=== PATIENT | male | born 1945 | race American Indian/Alaskan Native ===

== ENCOUNTER 2019-12-17 11:50 | Emergency (ER) | payer MEDICARE ==
[2019-12-17 12:46] LABS: Mucus,Urine 1+ /HPF
[2019-12-17 12:47] LABS: Basophils % (Auto) 0.7 % (0.0-1.8); Eosinophils # (Auto) 0.2 K/mm3 (0.0-0.4); Eosinophils % (Auto) 4.1 % (0.0-4.3); Hematocrit 41.5 % (35.5-45.6); Hemoglobin 13.8 gm/dl (11.8-15.2); Lymphocytes # (Auto) 1.8 K/mm3 (1.2-5.4); Lymphocytes % (Auto) 39.4 % (13.4-35.0); Mean Corpuscular HGB Conc 33 % (32-34); Mean Corpuscular Volume 87 fl (84-94); Monocytes # (Auto) 0.5 K/mm3 (0.0-0.8); Monocytes % (Auto) 10.8 % (0.0-7.3); Platelet Count 207 K/mm3 (140-440); Red Blood Count 4.78 M/mm3 (3.65-5.03); Red Cell Distribution Width 15.4 % (13.2-15.2)
[2019-12-17 12:47] LABS: Bilirubin,Urine NEG (Negative); Blood,Urine LG (Negative); Color,Urine Yellow (Yellow); Urobilinogen,Urine < 2.0 mg/dL (<2.0)
[2019-12-17] MEDS ORDERED: SODIUM CHLORIDE 0.9% 1000 ML 1,000 ML IV ONE (12:48)
[2019-12-17] MEDS ORDERED: ONDANSETRON 4 MG/2 ML INJ IV ONE (12:48)
[2019-12-17] MEDS ORDERED: MORPHINE 4 MG/1 ML INJ IV ONE (12:48)
[2019-12-17 12:49] LABS: RBC,Urine > 182.0 /HPF (0.0-6.0)
[2019-12-17 13:10] LABS: Alanine Aminotransferase 13 units/L (7-56); Albumin 4.4 g/dL (3.9-5); BUN/Creatinine Ratio 12; Blood Urea Nitrogen 11 mg/dL (9-20); Calcium 10.1 mg/dL (8.4-10.2); Hemolysis Index 5
--- NOTE | 2019-12-17 15:39 | Emergency Department Report ---
ED General Adult HPI - General Chief complaint: Abdominal Pain Stated complaint: SIDE PAIN Time Seen by Provider: 12/17/19 12:37 Source: patient Mode of arrival: Ambulatory Limitations: No Limitations - History of Present Illness Initial comments: Patient is a 74-year-old male presents emergency room with complaints of epigastric abdominal pain that radiates to the back that began yesterday. He states that it feels like a knot. Patient states that he took a Goody's powder without much relief. He states that also yesterday he had hematuria. He states he had a normal bowel movement today. He denies any nausea, vomiting, diarrhea, hematochezia, melena, fever, chest pain, shortness of breath. He has a past medical history of DM, nephrolithiasis, vertigo, hypertension. He states that he has not taken his medications since August 2019. He states that he does have a primary care doctor that he sees but did not call them when he ran out of his medications. Severity scale (0 -10): 3 - Related Data Previous Rx's Medication Instructions Recorded Last Taken Type metFORMIN [Glucophage] 500 mg PO BID #60 tablet 11/20/13 Unknown Rx Meclizine [Antivert] 25 mg PO QID PRN #20 tablet 11/30/14 Unknown Rx oxyCODONE /ACETAMINOPHEN [Percocet 1 tab PO Q6H PRN #10 tablet 11/30/14 Unknown Rx 5/325 mg] Tamsulosin [Flomax] 0.4 mg PO QDAY #7 cap 12/17/19 Unknown Rx amLODIPine 10 mg PO DAILY #30 tab 12/17/19 Unknown Rx traMADoL [Ultram 50 MG tab] 50 mg PO Q6HR PRN #10 tablet 12/17/19 Unknown Rx Allergies Allergy/AdvReac Type Severity Reaction Status Date / Time sulfamethoxazole AdvReac Unknown Verified 12/17/19 12:09 [From Bactrim] trimethoprim [From Bactrim] AdvReac Unknown Verified 12/17/19 12:09 ED Review of Systems ROS: Stated complaint: SIDE PAIN Other details as noted in HPI Comment: All other systems reviewed and negative ED Past Medical Hx - Past Medical History Hx Hypertension: Yes Hx Diabetes: Yes Hx HIV: No Additional medical history: vertigo - Surgical History Past Surgical History?: No - Social History Smoking Status: Never Smoker Substance Use Type: None - Medications Home Medications: Home Medications Medication Instructions Recorded Confirmed Last Taken Type metFORMIN [Glucophage] 500 mg PO BID #60 tablet 11/20/13 11/27/14 Unknown Rx Meclizine [Antivert] 25 mg PO QID PRN #20 tablet 11/30/14 Unknown Rx oxyCODONE /ACETAMINOPHEN [Percocet 1 tab PO Q6H PRN #10 tablet 11/30/14 Unknown Rx 5/325 mg] Tamsulosin [Flomax] 0.4 mg PO QDAY #7 cap 12/17/19 Unknown Rx amLODIPine 10 mg PO DAILY #30 tab 12/17/19 Unknown Rx traMADoL [Ultram 50 MG tab] 50 mg PO Q6HR PRN #10 tablet 12/17/19 Unknown Rx ED Physical Exam - General Limitations: No Limitations General appearance: alert, in no apparent distress - Head Head exam: Present: atraumatic, normocephalic - Eye Eye exam: Present: normal appearance - ENT ENT exam: Present: mucous membranes moist - Respiratory Respiratory exam: Present: normal lung sounds bilaterally. Absent: respiratory distress, wheezes, rales, rhonchi, stridor, chest wall tenderness, accessory muscle use, decreased breath sounds, prolonged expiratory - Cardiovascular Cardiovascular Exam: Present: regular rate, normal rhythm, normal heart sounds. Absent: systolic murmur, diastolic murmur, rubs, gallop - GI/Abdominal GI/Abdominal exam: Present: soft, tenderness (epigastric), normal bowel sounds. Absent: distended, guarding, rebound, rigid - Neurological Exam Neurological exam: Present: alert, oriented X3 - Psychiatric Psychiatric exam: Present: normal affect, normal mood - Skin Skin exam: Present: warm, dry, intact ED Course Vital Signs 12/17/19 12/17/19 12/17/19 12:11 13:11 13:15 Temperature 98.0 F Pulse Rate 76 69 78 Respiratory 20 16 15 Rate Blood Pressure 213/100 191/97 O2 Sat by Pulse 98 93 Oximetry 12/17/19 12/17/19 12/17/19 13:16 13:30 13:46 Temperature Pulse Rate 73 Respiratory 15 16 15 Rate Blood Pressure 181/89 O2 Sat by Pulse Oximetry 12/17/19 12/17/19 12/17/19 14:02 14:30 15:00 Temperature Pulse Rate 75 74 Respiratory 15 15 Rate Blood Pressure 172/87 169/87 180/90 O2 Sat by Pulse Oximetry 12/17/19 12/17/19 15:30 15:52 Temperature Pulse Rate 94 H Respiratory 19 Rate Blood Pressure 163/88 O2 Sat by Pulse 95 Oximetry ED Medical Decision Making - Lab Data Result diagrams: 12/17/19 12:24 12/17/19 12:24 Lab Results 12/17/19 12/17/19 12/17/19 Range/Units 12:19 12:24 12:24 WBC 4.6 (4.5-11.0) K/mm3 RBC 4.78 (3.65-5.03) M/mm3 Hgb 13.8 (11.8-15.2) gm/dl Hct 41.5 (35.5-45.6) % MCV 87 (84-94) fl MCH 29 (28-32) pg MCHC 33 (32-34) % RDW 15.4 H (13.2-15.2) % Plt Count 207 (140-440) K/mm3 Lymph % (Auto) 39.4 H (13.4-35.0) % [place] % (Auto) 10.8 H (0.0-7.3) % Eos % (Auto) 4.1 (0.0-4.3) % Baso % (Auto) 0.7 (0.0-1.8) % Lymph # 1.8 (1.2-5.4) K/mm3 [place] # 0.5 (0.0-0.8) K/mm3 Eos # 0.2 (0.0-0.4) K/mm3 Baso # 0.0 (0.0-0.1) K/mm3 Seg Neutrophils % 45.0 (40.0-70.0) % Seg Neutrophils # 2.1 (1.8-7.7) K/mm3 Sodium 142 (137-145) mmol/L Potassium 4.7 (3.6-5.0) mmol/L Chloride 102.8 (98-107) mmol/L Carbon Dioxide 29 (22-30) mmol/L Anion Gap 15 mmol/L BUN 11 (9-20) mg/dL Creatinine 0.9 (0.8-1.5) mg/dL Estimated GFR > 60 ml/min BUN/Creatinine Ratio 12 % Glucose 104 H (75-100) mg/dL Calcium 10.1 (8.4-10.2) mg/dL Total Bilirubin 0.20 (0.1-1.2) mg/dL AST 15 (5-40) units/L ALT 13 (7-56) units/L Alkaline Phosphatase 104 (35-129) units/L Troponin T (0.00-0.029) ng/mL Total Protein 7.4 (6.3-8.2) g/dL Albumin 4.4 (3.9-5) g/dL Albumin/Globulin Ratio 1.5 % Lipase (13-60) units/L Urine Color Yellow (Yellow) Urine Turbidity Slightly-cloudy (Clear) Urine pH 5.0 (5.0-7.0) Ur Specific [place] 1.021 (1.003-1.030) Urine Protein 30 mg/dl (Negative) mg/dL Urine Glucose (UA) Neg (Negative) mg/dL Urine Ketones Neg (Negative) mg/dL Urine Blood Lg (Negative) Urine Nitrite Neg (Negative) Urine Bilirubin Neg (Negative) Urine Ictotest Not Reportable Urine Urobilinogen < 2.0 (<2.0) mg/dL Ur Leukocyte Esterase Neg (Negative) Urine WBC (Auto) 4.0 (0.0-6.0) /HPF Urine RBC (Auto) > 182.0 (0.0-6.0) /HPF U Epithel Cells (Auto) 1.0 (0-13.0) /HPF Urine Mucus 1+ /HPF Urine Yeast (Budding) Not Reportable 12/17/19 Range/Units 12:24 WBC (4.5-11.0) K/mm3 RBC (3.65-5.03) M/mm3 Hgb (11.8-15.2) gm/dl Hct (35.5-45.6) % MCV (84-94) fl MCH (28-32) pg MCHC (32-34) % RDW (13.2-15.2) % Plt Count (140-440) K/mm3 Lymph % (Auto) (13.4-35.0) % [place] % (Auto) (0.0-7.3) % Eos % (Auto) (0.0-4.3) % Baso % (Auto) (0.0-1.8) % Lymph # (1.2-5.4) K/mm3 [place] # (0.0-0.8) K/mm3 Eos # (0.0-0.4) K/mm3 Baso # (0.0-0.1) K/mm3 Seg Neutrophils % (40.0-70.0) % Seg Neutrophils # (1.8-7.7) K/mm3 Sodium (137-145) mmol/L Potassium (3.6-5.0) mmol/L Chloride (98-107) mmol/L Carbon Dioxide (22-30) mmol/L Anion Gap mmol/L BUN (9-20) mg/dL Creatinine (0.8-1.5) mg/dL Estimated GFR ml/min BUN/Creatinine Ratio % Glucose (75-100) mg/dL Calcium (8.4-10.2) mg/dL Total Bilirubin (0.1-1.2) mg/dL AST (5-40) units/L ALT (7-56) units/L Alkaline Phosphatase (35-129) units/L Troponin T < 0.010 (0.00-0.029) ng/mL Total Protein (6.3-8.2) g/dL Albumin (3.9-5) g/dL Albumin/Globulin Ratio % Lipase 25 (13-60) units/L Urine Color (Yellow) Urine Turbidity (Clear) Urine pH (5.0-7.0) Ur Specific [place] (1.003-1.030) Urine Protein (Negative) mg/dL Urine Glucose (UA) (Negative) mg/dL Urine Ketones (Negative) mg/dL Urine Blood (Negative) Urine Nitrite (Negative) Urine Bilirubin (Negative) Urine Ictotest Urine Urobilinogen (<2.0) mg/dL Ur Leukocyte Esterase (Negative) Urine WBC (Auto) (0.0-6.0) /HPF Urine RBC (Auto) (0.0-6.0) /HPF U Epithel Cells (Auto) (0-13.0) /HPF Urine Mucus /HPF Urine Yeast (Budding) - Radiology Data Radiology results: report reviewed CT angio chest, CT angio abdomen pelvis INDICATION / CLINICAL INFORMATION: epigastric pain radiates to back, elevated BP. TECHNIQUE: Axial CT images were obtained after injection of IV contrast using CTA protocol. 3 plane MIP / 3D reconstructions were produced. All CT scans at this location are performed using CT dose reduction for ALARA by means of automated exposure control. COMPARISON: None available. CTA chest: Negative for aneurysm, dissection or pulmonary embolus. The lungs contain no mass, infiltrate or pleural fluid. Lingular scarring is noted. CTA ABDOMEN: The aorta is normal in caliber. The renal arteries and mesenteric vessels are widely patent. Negative for aneurysm or dissection. The parenchymal organs are unremarkable other than a 1 cm nonobstructing stone at the lower pole the right kidney and a 2 mm nonobstructing stone at the upper pole of the left kidney. Negative for abdominal mass, fluid or inflammation. The bowel is not dilated or thickened. CTA PELVIS: Iliac vessels are mildly tortuous. Negative for aneurysm, dissection or stenosis. The appendix is normal. IMPRESSION: 1. Negative for aneurysm, dissection or pulmonary embolus. 2. Nonobstructing renal stones right greater than left. Signer Name: Tyler Mueller MD Signed: 12/17/2019 3:04 PM Workstation Name: [id number] Transcribed By: ES Dictated By: Tyler Mueller MD Electronically Authenticated By: Tyler Mueller MD Signed Date/Time: 12/17/19 1504 DD/ 1457 TD/TT: - Medical Decision Making Patient is a 74-year-old male presents emergency room with complaints of epigastric abdominal pain that radiates to the back that began yesterday. He states that it feels like a knot. Patient states that he took a Goody's powder without much relief. He states that also yesterday he had hematuria. He states he had a normal bowel movement today. He denies any nausea, vomiting, diarrhea, hematochezia, melena, fever, chest pain, shortness of breath. He has a past medical history of DM, nephrolithiasis, vertigo, hypertension. He states that he has not taken his medications since August 2019. He states that he does have a primary care doctor that he sees but did not call them when he ran out of his medications. Initial vitals with elevated blood pressure which improved upon administration of 5 mg of labetalol IV. On exam patient has epigastric abdominal tenderness to palpation, no guarding, no rebound, no rigidity. Labs are normal. UA has many red blood cells. CTA abd and chest: 1. Negative for aneurysm, dissection or pulmonary embolus. 2. Nonobstructing renal stones right greater than left. Patient given morphine, Zofran, 1 L IV fluids and symptoms resolved and he was feeling much better. Discussed all results with patient and answered questions. Patient states that he takes amlodipine for hypertension, he states that he does take 1 other medication for his blood pressure but does not remember what it is. Patient given prescription for amlodipine, tamsulosin, tramadol. Advised patient Please take medication as prescribed. do not drive or operate heavy machinery while taking pain medication. Increase your water intake. Please follow-up with the urologist. Please follow-up with a primary care doctor. Return to the emergency room for any new or worsening symptoms. Please take your blood pressure medication as prescribed. Keep a blood pressure log and take this to your primary care doctor. Eat a low-sodium diet. Incorporate 30 minutes of daily exercise. - Differential Diagnosis AAA, dissection, pancreatitis, cholecystitis, nephrolithiasis, mass, obstru Critical care attestation.: If time is entered above; I have spent that time in minutes in the direct care of this critically ill patient, excluding procedure time. ED Disposition Clinical Impression: Nephrolithiasis, Hypertensive urgency Hematuria Qualifiers: Hematuria type: unspecified type Qualified Code(s): R31.9 - Hematuria, unspecified Abdominal pain Qualifiers: Abdominal location: epigastric Qualified Code(s): R10.13 - Epigastric pain Disposition: DC-01 TO HOME OR SELFCARE Is pt being admited?: No Does the pt Need Aspirin: No Condition: Stable Instructions: Kidney Stones (ED), Chronic Hypertension (ED) Additional Instructions: Please take medication as prescribed. do not drive or operate heavy machinery while taking pain medication. Increase your water intake. Please follow-up with the urologist. Please follow-up with a primary care doctor. Return to the emergency room for any new or worsening symptoms. Please take your blood pressure medication as prescribed. Keep a blood pressure log and take this to your primary care doctor. Eat a low-sodium diet. Incorporate 30 minutes of daily exercise. Prescriptions: amLODIPine 10 mg PO DAILY #30 tab Tamsulosin [Flomax] 0.4 mg PO QDAY #7 cap traMADoL [Ultram 50 MG tab] 50 mg PO Q6HR PRN #10 tablet PRN Reason: Pain , Severe (7-10) Referrals: GERARD CRESPO MD [Staff Physician] - 3-5 Days your, primary care doctor [Other] - 3-5 Days Time of Disposition: 15:38 Print Language: SYRIAC
[2019-12-17 15:58] VITALS: BP 163/88
== END 2019-12-17 16:11 | disposition home or self-care (01) ==
LOC: ED 11:50
DX: N20.0 Calculus of kidney (principal); I16.0 Hypertensive urgency; R10.13 Epigastric pain; R31.9 Hematuria, unspecified; R42 Dizziness and giddiness; E11.9 Type 2 diabetes mellitus without complications; Z79.84 Long term (current) use of oral hypoglycemic drugs; Z79.899 Other long term (current) drug therapy; Z88.8 Allergy status to other drugs, medicaments and biological substances
CPT/HCPCS: 36415; 71275; 74174; 80053; 81001; 83690; 84484; 85025; 96361; 96374; 96375; 99284; J2270; J2405; J7030; Q9967

== ENCOUNTER 2022-04-10 12:51 | Inpatient (IN) | payer MEDICARE ==
[2022-04-10] MEDS ORDERED: ASPIRIN 325 MG TAB PO ONE (12:57)
--- NOTE | 2022-04-10 13:47 | XRay Report ---
CHEST 2 VIEWS INDICATION / CLINICAL INFORMATION: cp. COMPARISON: None available. FINDINGS: SUPPORT DEVICES: None. HEART / MEDIASTINUM: No significant abnormality. LUNGS / PLEURA: No significant pulmonary or pleural abnormality. No pneumothorax. ADDITIONAL FINDINGS: No significant additional findings. IMPRESSION: 1. No acute findings. Signer Name: Craig Genao MD Signed: 04/10/2022 1:43 PM Workstation Name: [email or web address]
[2022-04-10 14:21] LABS: Basophils # (Auto) 0.1 K/mm3 (0.0-0.1); Eosinophils # (Auto) 0.3 K/mm3 (0.0-0.4); Eosinophils % (Auto) 5.3 % (0.0-4.3); Hemoglobin 12.9 gm/dl (11.8-15.2); Lymphocytes # (Auto) 1.1 K/mm3 (1.2-5.4); Lymphocytes % (Auto) 23.5 % (13.4-35.0); Mean Corpuscular HGB Conc 32 % (32-34); Mean Corpuscular Volume 87 fl (84-94); Monocytes # (Auto) 0.4 K/mm3 (0.0-0.8); Monocytes % (Auto) 7.8 % (0.0-7.3); Platelet Count 203 K/mm3 (140-440); Red Blood Count 4.58 M/mm3 (3.65-5.03); Red Cell Distribution Width 15.7 % (13.2-15.2)
[2022-04-10 14:27] LABS: INR 0.93 (0.87-1.13)
[2022-04-10 14:28] LABS: Partial Thromboplastin Time 31.7 Sec. (24.2-36.6)
[2022-04-10 14:45] LABS: Alanine Aminotransferase 9 units/L (7-56); Albumin 4.1 g/dL (3.9-5); BUN/Creatinine Ratio 14; Blood Urea Nitrogen 15 mg/dL (9-20); Calcium 9.3 mg/dL (8.4-10.2); Hemolysis Index 0
[2022-04-10 17:33] LABS: Chol/HDL Ratio 3.59 %; HDL Cholesterol 42 mg/dL (40-59); LDL Cholesterol,Direct 98 mg/dL (50-130)
[2022-04-11] MEDS ORDERED: NITROGLYCERIN 2% OINT 1 GM TP ONE (11:14)
[2022-04-11] MEDS ORDERED: cloNIDine 0.2 MG TAB PO ONE (11:26)
[2022-04-11] MEDS ORDERED: fentaNYL 100 MCG/2 ML INJ IV ONE (11:27)
[2022-04-11] MEDS ORDERED: ONDANSETRON 4 MG/2 ML INJ IV ONE (11:27)
--- NOTE | 2022-04-11 11:33 | Emergency Department Report ---
HPI - General Chief Complaint: Chest Pain Time Seen by Provider: 04/11/22 11:12 - [facility] HPI: Room 3 The patient is a 76-year-old male present with chief complaint of chest pain. Patient states for the past month he has had intermittent chest pain and sh ortness of breath with exertion. Patient states his pain is substernal. Patient states he has been awakened from his sleep secondary to shortness of breath and chest pain prompting him to come to the emergency department. Patient denies nausea/vomiting or diaphoresis with this pain. Patient states he has never had a stress test or cardiac catheterization ED Past Medical Hx - Past Medical History Hx Hypertension: Yes Hx Diabetes: Yes Additional medical history: vertigo, hypercholesterolemia - Surgical History Additional Surgical History: Kidney stone - Family History Family history: no significant - Social History Smoking Status: Never Smoker Substance Use Type: None (Denies illicit drug use) - Medications Home Medications: Home Medications Medication Instructions Recorded Confirmed Last Taken Type metFORMIN [Glucophage] 500 mg PO BID #60 tablet 11/20/13 11/27/14 Unknown Rx Meclizine [Antivert] 25 mg PO QID PRN #20 tablet 11/30/14 Unknown Rx oxyCODONE /ACETAMINOPHEN [Percocet 1 tab PO Q6H PRN #10 tablet 11/30/14 Unknown Rx 5/325 mg] Tamsulosin [Flomax] 0.4 mg PO QDAY #7 cap 12/17/19 Unknown Rx amLODIPine 10 mg PO DAILY #30 tab 12/17/19 Unknown Rx traMADoL [Ultram 50 MG tab] 50 mg PO Q6HR PRN #10 tablet 12/17/19 Unknown Rx ED Review of Systems ROS: Stated complaint: CP, SOB Other details as noted in HPI Constitutional: denies: diaphoresis, fever Eyes: denies: eye pain ENT: denies: throat pain Respiratory: shortness of breath, SOB with exertion Cardiovascular: chest pain, dyspnea on exertion, paroxysmal nocturnal dyspnea Endocrine: no symptoms reported Gastrointestinal: denies: nausea, vomiting Genitourinary: denies: dysuria Musculoskeletal: denies: back pain Neurological: denies: headache Physical Exam - Physical Exam Vital Signs: Vital Signs 04/10/22 04/11/22 12:56 07:08 Temperature 98.3 F 98.2 F Pulse Rate 89 72 Respiratory 18 16 Rate Blood Pressure 153/100 172/92 [Left] O2 Sat by Pulse 100 99 Oximetry Physical Exam: GENERAL: The patient is well-developed well-nourished male lying on stretcher not appearing to be in acute distress. [] HEENT: Normocephalic. Atraumatic. Extraocular motions are intact. Patient has moist mucous membranes. NECK: Supple. Trachea midline CHEST/LUNGS: Clear to auscultation. There is no respiratory distress noted. HEART/CARDIOVASCULAR: Regular. There is no tachycardia. There is no gallop rub or murmur. ABDOMEN: Abdomen is soft, nontender. Patient has normal bowel sounds. There is no abdominal distention. SKIN: There is no rash. There is no edema. There is no diaphoresis. NEURO: The patient is awake, alert, and oriented. The patient is cooperative. The patient has no focal neurologic deficits. The patient has normal speech. GCS 15 MUSCULOSKELETAL: There is no evidence of acute injury. ED Course Vital Signs 04/10/22 04/11/22 12:56 07:08 Temperature 98.3 F 98.2 F Pulse Rate 89 72 Respiratory 18 16 Rate Blood Pressure 153/100 172/92 [Left] O2 Sat by Pulse 100 99 Oximetry - Consultations Consultation #1: 04/11/22 11:36 Case discussed with cardiology (Kranthi) ED Medical Decision Making - Lab Data Result diagrams: 04/10/22 13:29 04/10/22 13:29 - EKG Data -: EKG Interpreted by Me EKG shows normal: sinus rhythm Rate: normal - EKG Data When compared to previous EKG there are: no significant change Interpretation: unchanged when compared t (11/20/2013) - Radiology Data Radiology results: report reviewed (Chest x-ray, CT chest), image reviewed (Chest x-ray, CT chest) interpreted by me: Chest x-ray-no definite focal infiltrates, no pneumothorax [facility] [address] [place] [address] XRay Report Signed Patient: FLORA DIAZ JR MR#: [id number] : 1945 Acct:[id number] Age/Sex: 76 / M ADM Date: 04/10/22 Loc: ED Attending Dr: Ordering Physician: ED MD GIRMA Date of Service: 04/10/22 Procedure(s): XR chest routine 2V Accession Number(s): [id number] cc: ED MD GIRMA Fluoro Time In Minutes: CHEST 2 VIEWS INDICATION / CLINICAL INFORMATION: cp. COMPARISON: None available. FINDINGS: SUPPORT DEVICES: None. HEART / MEDIASTINUM: No significant abnormality. LUNGS / PLEURA: No significant pulmonary or pleural abnormality. No pneumothorax. ADDITIONAL FINDINGS: No significant additional findings. IMPRESSION: 1. No acute findings. Signer Name: Craig Genao MD Signed: 04/10/2022 1:43 PM Workstation Name: [email or web address] Transcribed By: CW Dictated By: PAUL GENAO MD Electronically Authenticated By: PAUL GENAO MD Signed Date/Time: 04/10/221342 DD/ 42 TD/TT: [place] [address] Cat Scan Report Signed Patient: FLORA DIAZ JR MR#: [id number] : 1945 Acct:[id number] Age/Sex: 76 / M ADM Date: 04/10/22 Loc: ED Attending Dr: Ordering Physician: YUKO JON MD Date of Service: 04/11/22 Procedure(s): CT angio chest Accession Number(s): [id number] cc: YUKO JON MD CTA CHEST WITH CONTRAST INDICATION / CLINICAL INFORMATION: Chest pain 100ml of [id number] . TECHNIQUE: Axial CT images were obtained through the chest after injection of 100 mL IV contrast. 3 plane MIP and/or 3D reconstructions were produced. All CT scans at this location are performed using CT dose reduction for ALARA by means of automated exposure control. COMPARISON: CTA chest dated 12/17/2019 FINDINGS: PULMONARY EMBOLUS: None. Respiratory motion limits evaluation of the subsegmental pulmonary arteries. THORACIC AORTA: No significant abnormality. HEART: Cardiomegaly. CORONARY ARTERY CALCIFICATION: Present -- Mild. MEDIASTINUM / ZOILA: No significant abnormality. PLEURA: No pleural effusion. No pneumothorax. LUNGS: Dependent consolidation right lung base. Smooth interlobular septal thickening. Lingular scarring versus atelectasis. Dependent right lower lobe scarring versus atelectasis. ADDITIONAL FINDINGS: None. UPPER ABDOMEN: Reflux of contrast into the IVC and hepatic veins. Bilateral nonobstructing renal calculi. SKELETAL STRUCTURES: No significant osseous abnormality. IMPRESSION: 1. No CT evidence for pulmonary embolism. 2. Mild pulmonary edema. 2. Dependent consolidation in the right lower lobe, likely a combination of pneumonia and atelectasis. Signer Name: Elian Yee MD Signed: 04/11/2022 4:45 PM Workstation Name: [id number] Transcribed By: SAL Dictated By: ELIAN YEE MD Electronically Authenticated By: ELIAN YEE MD Signed Date/Time: 04/11/221644 DD/ 38 TD/TT: - Differential Diagnosis ACS, angina, PE, pleurisy, pericarditis, GERD Critical care attestation.: If time is entered above; I have spent that time in minutes in the direct care of this critically ill patient, excluding procedure time. ED Disposition Clinical Impression: Chest pain, CHF (congestive heart failure) Disposition: ADMITTED INPATIENT Is pt being admited?: Yes Does the pt Need Aspirin: Yes Condition: Fair Instructions: Nonspecific Chest Pain, Adult Referrals: PRIMARY CARE, [Primary Care Provider] - 3-5 Days Time of Disposition: 17:05 (Care transferred to hospitalist (Dr. Mar)) Heart Score - HEART Score History: Moderately suspicious EKG: Non-specific Age: > 65 Risk factors: > 3 risk factors or hx of atherosclerotic disease Troponin: 1-3x normal limit HEART Score: 7 - EKG Read Time Time EKG Completed: 11:32 EKG Read Time: 11:32
--- NOTE | 2022-04-11 12:37 | Consultation ---
History of Present Illness Consult date: 04/11/22 Requesting physician: YUKO JON Consult reason: chest pain, elevated troponin History of present illness: Patient is a 76-year-old male with a past medical history of hypertension, diabetes, hyperlipidemia who presented to the ED with a complaint of intermittent chest pain and shortness of breath x1 month. Patient reports that since the beginning of February he has had this intermittent sharp chest pain that occurs when he takes a deep breath. He also states he has been having a cough and some shortness of breath. Patient furthermore patient reports that certain nights he wakes up short of breath. Patient came to the ED for further evaluation due to his ongoing complaints. Of note patient reports that he does have a history of high blood pressure but does not take any medications for it. He states he just did not want to. In the ED patient was found to have minimally elevated troponins. Patient denies crushing or squeezing chest pain, chest pain worsened by exertion, diaphoresis, nausea, vomiting, palpitations, or lightheadedness. Per review of records patient previously saw Dr. Glez of our practice in 2018 but has not followed up since then. Cardiology is consulted for chest pain/elevated troponins. Past History Past Medical History: diabetes, hypertension, hyperlipidemia, other (h/o kidney stones) Past Surgical History: No surgical history Social history: denies: smoking Family history: CAD, hypertension Medications and Allergies Allergies Allergy/AdvReac Type Severity Reaction Status Date / Time sulfamethoxazole AdvReac Unknown Verified 04/10/22 12:57 [From Bactrim] trimethoprim [From Bactrim] AdvReac Unknown Verified 04/10/22 12:57 Home Medications Medication Instructions Recorded Confirmed Last Taken Type metFORMIN [Glucophage] 500 mg PO BID #60 tablet 11/20/13 11/27/14 Unknown Rx Meclizine [Antivert] 25 mg PO QID PRN #20 tablet 11/30/14 Unknown Rx oxyCODONE /ACETAMINOPHEN [Percocet 1 tab PO Q6H PRN #10 tablet 11/30/14 Unknown Rx 5/325 mg] Tamsulosin [Flomax] 0.4 mg PO QDAY #7 cap 12/17/19 Unknown Rx amLODIPine 10 mg PO DAILY #30 tab 12/17/19 Unknown Rx traMADoL [Ultram 50 MG tab] 50 mg PO Q6HR PRN #10 tablet 12/17/19 Unknown Rx Active Meds: Active Medications Aspirin (Aspirin 81 Mg Tab Chew) 81 mg PO DAILY [facility] Atorvastatin Calcium (Atorvastatin 20 Mg Tab) 20 mg PO QHS [facility] Lisinopril (Lisinopril 20 Mg Tab) 40 mg PO DAILY [facility] Metoprolol Tartrate (Metoprolol Tartrate 50 Mg Tab) 50 mg PO BID [facility] Review of Systems Constitutional: no weight loss, no weight gain Ears, nose, mouth and throat: no sinus pressure, no sinus pain Cardiovascular: chest pain, shortness of breath, paroxysmal nocturnal dyspnea, no orthopnea, no palpitations, no edema Respiratory: cough, shortness of breath, dyspnea on exertion, pain on inspiration Gastrointestinal: no abdominal pain, no nausea, no vomiting Musculoskeletal: no neck stiffness, no neck pain, no shooting arm pain Integumentary: no rash, no pruritis, no redness Neurological: no head injury, no transient paralysis, no paralysis Psychiatric: no anxiety, no memory loss Endocrine: no cold intolerance, no heat intolerance Hematologic/Lymphatic: no easy bruising, no easy bleeding Physical Examination Vital Signs Temp Pulse Resp BP Pulse Ox 98.3 F 89 18 153/100 100 04/10/22 12:56 04/10/22 12:56 04/10/22 12:56 04/10/22 12:56 04/10/22 12:56 General appearance: no acute distress HEENT: Positive: PERRL Neck: Positive: trachea midline Cardiac: Positive: Reg Rate and Rhythm Lungs: Positive: Normal Breath Sounds Neuro: Positive: Grossly Intact Abdomen: Positive: Soft Skin: Negative: Rash, Suspicious Lesions, Ulceration Extremities: Present: upper extr. pulses. Absent: edema Results 04/10/22 13:29 04/10/22 13:29 Cardiac Enzymes 04/10/22 04/10/22 04/10/22 Range/Units 13:29 13:29 13:29 WBC 4.8 (4.5-11.0) K/mm3 RBC 4.58 (3.65-5.03) M/mm3 Hgb 12.9 (11.8-15.2) gm/dl Hct 40.0 (35.5-45.6) % MCV 87 (84-94) fl MCH 28 (28-32) pg MCHC 32 (32-34) % RDW 15.7 H (13.2-15.2) % Plt Count 203 (140-440) K/mm3 Lymph % (Auto) 23.5 (13.4-35.0) % [place] % (Auto) 7.8 H (0.0-7.3) % Eos % (Auto) 5.3 H (0.0-4.3) % Baso % (Auto) 1.0 (0.0-1.8) % Lymph # (Auto) 1.1 L (1.2-5.4) K/mm3 [place] # (Auto) 0.4 (0.0-0.8) K/mm3 Eos # (Auto) 0.3 (0.0-0.4) K/mm3 Baso # (Auto) 0.1 (0.0-0.1) K/mm3 Seg Neutrophils % 62.4 (40.0-70.0) % Seg Neutrophils # 3.0 (1.8-7.7) K/mm3 PT 13.7 (12.2-14.9) Sec. INR 0.93 (0.87-1.13) APTT 31.7 (24.2-36.6) Sec. Sodium 141 (137-145) mmol/L Potassium 4.1 (3.6-5.0) mmol/L Chloride 105.0 (98-107) mmol/L Carbon Dioxide 24 (22-30) mmol/L Anion Gap 16 mmol/L BUN 15 (9-20) mg/dL Creatinine 1.1 (0.8-1.3) mg/dL Estimated GFR > 60 ml/min BUN/Creatinine Ratio 14 % Glucose 201 H (75-100) mg/dL Calcium 9.3 (8.4-10.2) mg/dL Total Bilirubin 0.80 (0.1-1.2) mg/dL AST 12 (5-40) units/L ALT 9 (7-56) units/L Alkaline Phosphatase 111 (35-129) units/L Troponin T 0.054 H (0.00-0.029) ng/mL Total Protein 7.4 (6.3-8.2) g/dL Albumin 4.1 (3.9-5) g/dL Albumin/Globulin Ratio 1.2 % Triglycerides 53 (2-149) mg/dL Cholesterol 151 (50-199) mg/dL LDL Cholesterol Direct 98 (50-130) mg/dL HDL Cholesterol 42 (40-59) mg/dL Cholesterol/HDL Ratio 3.59 % 04/10/22 04/10/22 Range/Units 16:01 19:57 WBC (4.5-11.0) K/mm3 RBC (3.65-5.03) M/mm3 Hgb (11.8-15.2) gm/dl Hct (35.5-45.6) % MCV (84-94) fl MCH (28-32) pg MCHC (32-34) % RDW (13.2-15.2) % Plt Count (140-440) K/mm3 Lymph % (Auto) (13.4-35.0) % [place] % (Auto) (0.0-7.3) % Eos % (Auto) (0.0-4.3) % Baso % (Auto) (0.0-1.8) % Lymph # (Auto) (1.2-5.4) K/mm3 [place] # (Auto) (0.0-0.8) K/mm3 Eos # (Auto) (0.0-0.4) K/mm3 Baso # (Auto) (0.0-0.1) K/mm3 Seg Neutrophils % (40.0-70.0) % Seg Neutrophils # (1.8-7.7) K/mm3 PT (12.2-14.9) Sec. INR (0.87-1.13) APTT (24.2-36.6) Sec. Sodium (137-145) mmol/L Potassium (3.6-5.0) mmol/L Chloride (98-107) mmol/L Carbon Dioxide (22-30) mmol/L Anion Gap mmol/L BUN (9-20) mg/dL Creatinine (0.8-1.3) mg/dL Estimated GFR ml/min BUN/Creatinine Ratio % Glucose (75-100) mg/dL Calcium (8.4-10.2) mg/dL Total Bilirubin (0.1-1.2) mg/dL AST (5-40) units/L ALT (7-56) units/L Alkaline Phosphatase (35-129) units/L Troponin T 0.050 H 0.061 H D (0.00-0.029) ng/mL Total Protein (6.3-8.2) g/dL Albumin (3.9-5) g/dL Albumin/Globulin Ratio % Triglycerides (2-149) mg/dL Cholesterol (50-199) mg/dL LDL Cholesterol Direct (50-130) mg/dL HDL Cholesterol (40-59) mg/dL Cholesterol/HDL Ratio % Coagulation 04/10/22 Range/Units 13:29 PT 13.7 (12.2-14.9) Sec. INR 0.93 (0.87-1.13) APTT 31.7 (24.2-36.6) Sec. Lipids 04/10/22 Range/Units 13:29 Triglycerides 53 (2-149) mg/dL Cholesterol 151 (50-199) mg/dL HDL Cholesterol 42 (40-59) mg/dL Cholesterol/HDL Ratio 3.59 % CBC 04/10/22 Range/Units 13:29 WBC 4.8 (4.5-11.0) K/mm3 RBC 4.58 (3.65-5.03) M/mm3 Hgb 12.9 (11.8-15.2) gm/dl Hct 40.0 (35.5-45.6) % Plt Count 203 (140-440) K/mm3 Lymph # (Auto) 1.1 L (1.2-5.4) K/mm3 [place] # (Auto) 0.4 (0.0-0.8) K/mm3 Eos # (Auto) 0.3 (0.0-0.4) K/mm3 Baso # (Auto) 0.1 (0.0-0.1) K/mm3 Comprehensive Metabolic Panel 04/10/22 Range/Units 13:29 Sodium 141 (137-145) mmol/L Potassium 4.1 (3.6-5.0) mmol/L Chloride 105.0 (98-107) mmol/L Carbon Dioxide 24 (22-30) mmol/L BUN 15 (9-20) mg/dL Creatinine 1.1 (0.8-1.3) mg/dL Glucose 201 H (75-100) mg/dL Calcium 9.3 (8.4-10.2) mg/dL AST 12 (5-40) units/L ALT 9 (7-56) units/L Alkaline Phosphatase 111 (35-129) units/L Total Protein 7.4 (6.3-8.2) g/dL Albumin 4.1 (3.9-5) g/dL - Imaging and Cardiology Echo: pending EKG: report reviewed, image reviewed EKG interpretations - Telemetry EKG Rhythm: Sinus Rhythm - EKG Sinus rhythms and dysrhythmias: sinus rhythm Repolarization changes or abnormalities: ST or T wave suggestive of ischemia Assessment and Plan Patient is a 76-year-old male with a past medical history of hypertension, diabetes, hyperlipidemia who presented to the ED with a complaint of intermittent chest pain and shortness of breath x1 month Chest pain Elevated troponins Hypertension Diabetes Hyperlipidemia Obesity Medical noncompliance Echo 08/01/2018-EF 45 to 50% basal posterior wall appears moderately hypokinetic. Inferior wall appears mildly hypokinetic. LV relaxation is impaired. Right ventricle systolic function is normal Plan: EKG shows sinus rhythm with LVH and T wave inversion in lateral leads. No acute ischemic changes. Troponin noted to be very minimally elevated. Continue to trend troponins Patient's chest pain is atypical it is intermittent and no associated with inspiration and coughing As per conversation with ED doctor patient for CT chest Patient noted to be hypertensive will initiate metoprolol 50 mg p.o. twice daily, lisinopril 40 mg p.o. daily, aspirin Will initiate patient's home dose of atorvastatin 20 mg p.o. nightly BNP pending however CXR did not show any acute cardiopulmonary process and patient appears euvolemic on exam We will tentatively plan for stress test in the a.m. pending further work-up. Patient to be n.p.o. after midnight Echo pending Plan of care discussed with patient who verbalized understanding and agreement Patient seen in conjunction with Dr. Bain who agrees this plan of care - Patient Problems (1) Diabetes Current Visit: Yes Status: Acute (2) Elevated troponin Current Visit: Yes Status: Acute (3) HTN (hypertension) Current Visit: Yes Status: Acute (4) Obesity Current Visit: Yes Status: Acute (5) SOB (shortness of breath) Current Visit: Yes Status: Acute (6) Noncompliance Current Visit: Yes Status: Acute (7) Chest pain Current Visit: Yes Status: Acute
[2022-04-11] MEDS: METOPROLOL TARTRATE 50 MG TAB PO SCH ×2 (13:21→22:12)
[2022-04-11] MEDS: LISINOPRIL 20 MG TAB PO SCH (13:21)
--- NOTE | 2022-04-11 16:49 | Cat Scan Report ---
CTA CHEST WITH CONTRAST INDICATION / CLINICAL INFORMATION: Chest pain 100ml of [id number] . TECHNIQUE: Axial CT images were obtained through the chest after injection of 100 mL IV contrast. 3 p jt MIP and/or 3D reconstructions were produced. All CT scans at this location are performed using C T dose reduction for ALARA by means of automated exposure control. COMPARISON: CTA chest dated 12/17/2019 FINDINGS: PULMONARY EMBOLUS: None. Respiratory motion limits evaluation of the subsegmental pulmonary arteries. THORACIC AORTA: No significant abnormality. HEART: Cardiomegaly. CORONARY ARTERY CALCIFICATION: Present -- Mild. MEDIASTINUM / ZOILA: No significant abnormality. PLEURA: No pleural effusion. No pneumothorax. LUNGS: Dependent consolidation right lung base. Smooth interlobular septal thickening. Lingular scarr ing versus atelectasis. Dependent right lower lobe scarring versus atelectasis. ADDITIONAL FINDINGS: None. UPPER ABDOMEN: Reflux of contrast into the IVC and hepatic veins. Bilateral nonobstructing renal calc jess. SKELETAL STRUCTURES: No significant osseous abnormality. IMPRESSION: 1. No CT evidence for pulmonary embolism. 2. Mild pulmonary edema. 2. Dependent consolidation in the right lower lobe, likely a combination of pneumonia and atelectasis . Signer Name: Rj Justin MD Signed: 04/11/2022 4:45 PM Workstation Name: [id number]
[2022-04-11] MEDS ORDERED: FUROSEMIDE 40 MG/4 ML INJ IV ONE (17:06)
--- NOTE | 2022-04-11 17:08 | History and Physical Report ---
History of Present Illness Chief complaint: My chest hurts and it is hard to breathe History of present illness: 76 YO Male with Obesity, HTN, BPH, DM, HLD, Metabolic Syndrome, BPV, Medication Noncompliance presents to ED for evaluation. Patient reports "my chest hurts and I am short of breath". Patient states that he has experienced shortness of breath over the past 1 month with persistent and worsening symptoms over the same timeframe. Patient also reports chest pain over the past several days with increasing duration and frequency over the time timeframe. Patient states that pain is 6/10, intermittent, associated with shortness of breath, worsened with exertion, relieved with rest, patient acknowledges orthopnea, patient knowledges paroxysmal nocturnal dyspnea. Patient knowledges 7 pound weight gain over the past week. Patient transported to [facility] via private vehicle for further care and evaluation of the aforementioned symptoms. The patient was seen and evaluated in the emergency department. All lab and imaging studies reviewed. Patient found to have a systolic blood pressure in the 190s, and 10 at rest, as well as lab findings consistent with NSTEMI, as well as clinical symptoms consistent with CHF decompensation. The patient was admitted to telemetry and initiated on CHF protocol as well as ACS protocol. Cardiology team consulted in ED. patient denies fever, chills, productive cough, skin rash, recent contact, known exposure to COVID-19. Prior admission on 11/27/2014 reviewed. All medication listed at time of admission has been reconciled. Advanced care planning conducted in ED. Past History Past Medical History: diabetes, hypertension, hyperlipidemia, other (h/o kidney stones) Past Surgical History: No surgical history Social history: denies: smoking Family history: CAD, hypertension Medications and Allergies Allergies Allergy/AdvReac Type Severity Reaction Status Date / Time sulfamethoxazole AdvReac Unknown Verified 04/10/22 12:57 [From Bactrim] trimethoprim [From Bactrim] AdvReac Unknown Verified 04/10/22 12:57 Home Medications Medication Instructions Recorded Confirmed Last Taken Type metFORMIN [Glucophage] 500 mg PO BID #60 tablet 11/20/13 11/27/14 Unknown Rx Meclizine [Antivert] 25 mg PO QID PRN #20 tablet 11/30/14 Unknown Rx oxyCODONE /ACETAMINOPHEN [Percocet 1 tab PO Q6H PRN #10 tablet 11/30/14 Unknown Rx 5/325 mg] Tamsulosin [Flomax] 0.4 mg PO QDAY #7 cap 12/17/19 Unknown Rx amLODIPine 10 mg PO DAILY #30 tab 12/17/19 Unknown Rx traMADoL [Ultram 50 MG tab] 50 mg PO Q6HR PRN #10 tablet 12/17/19 Unknown Rx Active Meds: Active Medications Aspirin (Aspirin 81 Mg Tab Chew) 81 mg PO DAILY [facility] Atorvastatin Calcium (Atorvastatin 20 Mg Tab) 20 mg PO QHS [facility] Lisinopril (Lisinopril 20 Mg Tab) 40 mg PO DAILY [facility] Last Admin: 04/11/22 13:21 Dose: 40 mg Metoprolol Tartrate (Metoprolol Tartrate 50 Mg Tab) 50 mg PO BID [facility] Last Admin: 04/11/22 13:21 Dose: 50 mg Review of Systems Constitutional: weight gain, no weight loss, no fever, no chills Ears, nose, mouth and throat: no ear pain, no ear discharge, no decreased hearing Cardiovascular: chest pain, orthopnea, shortness of breath, dyspnea on exertion, paroxysmal nocturnal dyspnea, decreased exercise tolerance Respiratory: no cough, no cough with sputum, no excessive sputum Gastrointestinal: no abdominal pain, no nausea, no vomiting, no diarrhea Genitourinary Male: no hematuria, no flank pain, no discharge, no urinary frequency, no urinary hesitancy Rectal: no pain, no incontinence, no bleeding Musculoskeletal: no neck stiffness, no neck pain Integumentary: no rash, no pruritis, no redness, no sores, no wounds Neurological: no head injury, no transient paralysis, no weakness, no numbness, no tingling Psychiatric: no anxiety, no change in sleep habits, no insomnia, no hypersomnia, no change in appetite, no suicidal ideation Endocrine: no cold intolerance, no polyphagia, no polydipsia, no polyuria, no nocturia Hematologic/Lymphatic: no easy bruising Allergic/Immunologic: no allergic rhinitis, no wheezing Exam - Constitutional Vitals: Temp Pulse Resp BP Pulse Ox 98.2 F 84 18 171/103 99 04/11/22 07:08 04/11/22 13:42 04/11/22 13:42 04/11/22 13:42 04/11/22 13:42 General appearance: Present: mild distress, obese - EENT Eyes: Present: PERRL ENT: hearing intact, clear oral mucosa - Neck Neck: Present: supple, normal ROM - Respiratory Respiratory effort: normal Respiratory: bilateral: CTA - Cardiovascular Heart Sounds: Present: S1 & S2. Absent: rub, click - Extremities Extremities: pulses symmetrical Extremity abnormal: edema Peripheral Pulses: within normal limits - Abdominal General gastrointestinal: Present: soft, non-tender, non-distended, normal bowel sounds Male genitourinary: Present: normal - Integumentary Integumentary: Present: clear, warm, dry - Musculoskeletal Musculoskeletal: gait normal, strength equal bilaterally - Psychiatric Psychiatric: appropriate mood/affect, intact judgment & insight - Neurologic Neurologic: CNII-XII intact, moves all extremities HEART Score - HEART Score EKG: Non-specific Age: > 65 Risk factors: > 3 risk factors or hx of atherosclerotic disease Troponin: Troponin T 0.042 ng/mL (0.00-0.029) H D 04/11/22 14:27 Troponin: 1-3x normal limit Results - Labs CBC & Chem 7: 04/10/22 13:29 04/10/22 13:29 Labs: Abnormal lab results 04/10/22 04/10/22 04/11/22 Range/Units 13:29 19:57 11:29 D-Dimer 362.79 H (0-234) ng/mlDDU Glucose 201 H (75-100) mg/dL Troponin T 0.054 H 0.061 H D (0.00-0.029) ng/mL NT-Pro-B Natriuret Pep (0-900) pg/mL 04/11/22 04/11/22 Range/Units 11:53 14:27 D-Dimer (0-234) ng/mlDDU Glucose (75-100) mg/dL Troponin T 0.042 H D (0.00-0.029) ng/mL NT-Pro-B Natriuret Pep 2730 H (0-900) pg/mL Assessment and Plan - Patient Problems (1) CHF (congestive heart failure) Current Visit: Yes Status: Acute Qualifiers: Heart failure type: systolic Heart failure chronicity: acute Qualified Code(s): I50.21 - Acute systolic (congestive) heart failure Plan to address problem: CHF protocol: Strict I/O, monitoring output every shift, daily weight, afterload reduction, blood pressure control, monitor fluid balance, diuretic therapy, echocardiogram ordered and pending at time of admission, cardiology team consulted. (2) NSTEMI (non-ST elevated myocardial infarction) Current Visit: Yes Status: Acute Plan to address problem: ACS protocol: Serial cardiac enzymes, EKG, telemetry monitoring, cardiology team consulted. Further care and evaluation as per cardiology team. (3) Angina at rest Current Visit: Yes Status: Acute Plan to address problem: ACS protocol: Serial cardiac enzymes, EKG, telemetry monitoring, morphine, submental oxygen, nitro, aspirin, cardiology team consulted, stress test in a.m. as per cardiology team. (4) Malignant hypertension Current Visit: No Status: Acute Plan to address problem: Monitor blood pressure every shift, continue medical management. (5) Hyperlipidemia Current Visit: Yes Status: Acute Qualifiers: Hyperlipidemia type: mixed hyperlipidemia Qualified Code(s): E78.2 - Mixed hyperlipidemia Plan to address problem: Lipid panel, statin therapy, low-cholesterol diet, supportive care. (6) Metabolic syndrome Current Visit: Yes Status: Acute Plan to address problem: Balanced diet, weight reduction, glucose control, low-cholesterol diet (7) Diabetes Current Visit: Yes Status: Acute Plan to address problem: Consistent carbohydrate diet, Accu-Chek, insulin protocol, hypoglycemia protocol. (8) DVT prophylaxis Current Visit: Yes Status: Acute Plan to address problem: SCD to bilateral lower extremities while in bed (9) Advance care planning Current Visit: Yes Status: Acute Plan to address problem: Disease education done, care plan discussed, diagnoses discussed, prognosis discussed, patient is full code. Patient acknowledges understanding and agreement with care plan, +30 minutes. (10) Preventative health care Current Visit: Yes Status: Acute Plan to address problem: Patient counseled regarding weight reduction, meal planning, risk factor reduction, outpatient follow-up with primary care physician for all age and risk factor appropriate screening test. +30 minutes.
[2022-04-11] MEDS ORDERED: ALBUTEROL 2.5 MG/3 ML NEBU IH PRN (17:10)
[2022-04-11] MEDS ORDERED: ACETAMINOPHEN 325 MG TAB PO PRN (17:10)
[2022-04-11] MEDS ORDERED: ONDANSETRON 4 MG/2 ML INJ IV PRN (17:10)
[2022-04-11] MEDS ORDERED: MORPHINE 4 MG/1 ML INJ IV PRN (17:10)
[2022-04-11] MEDS ORDERED: oxyCODONE /ACETAMINOPHEN 5-325MG TAB PO PRN (17:10)
[2022-04-11] MEDS ORDERED: MECLIZINE 25 MG TAB PO PRN (17:12)
[2022-04-11] MEDS ORDERED: DEXTROSE 50% IN WATER (25GM) 50 ML SYRINGE IV PRN (17:13)
--- NOTE | 2022-04-11 17:37 | Electrocardiograph Report ---
[facility] Test Date: 2022-04-10 Test Time: 12:59:16 Pat Name: FLORA DIAZ Department: Room: Gender: M [employer]: AF : [id number] Requested By: ED DOC Order Number: [id number] Reading MD: Jennie Bae Measurements Intervals [place] Rate: 91 P: 60 MI: 163 QRS: -9 QRSD: 90 T: 230 QT: 402 QTc: 493 Interpretive Statements Sinus rhythm Probable left atrial enlargement LVH w/ repol abnormalities, possible ischemia No previous ECG available for comparison Electronically Signed On 04-11-2022 17:36:43 EDT by Jennie Bae
[2022-04-11] MEDS: FUROSEMIDE 20 MG/2 ML INJ IV SCH (18:02)
[2022-04-12] MEDS: INSULIN REGULAR, HUMAN 100 UNITS/1 ML SUB-Q SCH ×5 (00:23→22:30)
[2022-04-12] MEDS: FUROSEMIDE 20 MG/2 ML INJ IV SCH (05:17)
[2022-04-12 05:20] LABS: BUN/Creatinine Ratio 16; Blood Urea Nitrogen 21 mg/dL (9-20); Calcium 9.5 mg/dL (8.4-10.2); Hemolysis Index 20
[2022-04-12] MEDS ORDERED: REGADENOSON 0.4 MG/5 ML INJ IV ONE ×2 (08:26→08:30)
--- NOTE | 2022-04-12 09:25 | Progress Note ---
Assessment and Plan Assessment and plan: 76 YO Male with Obesity, HTN, BPH, DM, HLD, Metabolic Syndrome, BPV, Medication Noncompliance presents to ED for evaluation of chest pain and shortness of breath over the past month. Patient report 7 pound weight gain over the past week as well as orthopnea and PND. In the ED, patient found to have a systolic blood pressure in the 190s. The patient was admitted with diagnosis below Acute hypoxic respiratory failure Acute systolic heart failure NSTEMI Chest pain/elevated troponin Hypertensive urgency Hyperlipidemia Diabetes mellitus type 2 Hospital course: 04/12/2022. Echocardiogram reveals left ventricular systolic function severely decreased with hypokinesis in the anterior, anterior lateral, inferior lateral and inferior wall with EF of 20-25%. RVSP is [address] scan shows no evidence of PE but does reveal mild pulmonary edema and dependent consolidation in the right lower lobe likely representing atelectasis. Cardiology initiated metoprolol, lisinopril. Continue aspirin and statin. BNP mildly elevated at 2730. Initiate diuresis per cardiology recommendations. Patient for ischemic evaluation with stress test this a.m. Continue O2 to maintain saturations greater than 92%. Patient currently on 2 L with O2 saturation of 96% History Interval history: No new issues overnight Hospitalist Physical - Constitutional Vitals: Temp Pulse Resp BP Pulse Ox 97.4 F L 71 18 127/80 95 04/12/22 07:49 04/12/22 07:49 04/12/22 07:49 04/12/22 07:49 04/12/22 07:49 General appearance: Present: no acute distress, obese - EENT Eyes: Present: PERRL, EOM intact ENT: hearing intact, clear oral mucosa, dentition normal - Neck Neck: Present: supple, normal ROM - Respiratory Respiratory effort: normal Respiratory: bilateral: CTA - Cardiovascular Rhythm: regular Heart Sounds: Present: S1 & S2. Absent: gallop, rub - Extremities Extremities: no ischemia, No edema, Full ROM - Abdominal General gastrointestinal: soft, non-tender, non-distended, normal bowel sounds - Integumentary Integumentary: Present: clear, warm, dry - Neurologic Neurologic: CNII-XII intact, moves all extremities HEART Score - HEART Score EKG: Non-specific Age: > 65 Risk factors: > 3 risk factors or hx of atherosclerotic disease Troponin: Troponin T 0.061 ng/mL (0.00-0.029) H D 04/11/22 23:40 Troponin: 1-3x normal limit Results - Labs CBC & Chem 7: 04/10/22 13:29 04/12/22 04:00 Labs: Laboratory Last Values WBC 4.8 K/mm3 (4.5-11.0) 04/10/22 13:29 RBC 4.58 M/mm3 (3.65-5.03) 04/10/22 13:29 Hgb 12.9 gm/dl (11.8-15.2) 04/10/22 13:29 Hct 40.0 % (35.5-45.6) 04/10/22 13:29 MCV 87 fl (84-94) 04/10/22 13:29 MCH 28 pg (28-32) 04/10/22 13:29 MCHC 32 % (32-34) 04/10/22 13:29 RDW 15.7 % (13.2-15.2) H 04/10/22 13:29 Plt Count 203 K/mm3 (140-440) 04/10/22 13:29 Lymph % (Auto) 23.5 % (13.4-35.0) 04/10/22 13:29 [place] % (Auto) 7.8 % (0.0-7.3) H 04/10/22 13:29 Eos % (Auto) 5.3 % (0.0-4.3) H 04/10/22 13:29 Baso % (Auto) 1.0 % (0.0-1.8) 04/10/22 13:29 Lymph # (Auto) 1.1 K/mm3 (1.2-5.4) L 04/10/22 13:29 [place] # (Auto) 0.4 K/mm3 (0.0-0.8) 04/10/22 13:29 Eos # (Auto) 0.3 K/mm3 (0.0-0.4) 04/10/22 13:29 Baso # (Auto) 0.1 K/mm3 (0.0-0.1) 04/10/22 13:29 Seg Neutrophils % 62.4 % (40.0-70.0) 04/10/22 13:29 Seg Neutrophils # 3.0 K/mm3 (1.8-7.7) 04/10/22 13:29 PT 13.7 Sec. (12.2-14.9) 04/10/22 13:29 INR 0.93 (0.87-1.13) 04/10/22 13:29 APTT 31.7 Sec. (24.2-36.6) 04/10/22 13:29 D-Dimer 362.79 ng/mlDDU (0-234) H 04/11/22 11:29 Sodium 139 mmol/L (137-145) 04/12/22 04:00 Potassium 4.4 mmol/L (3.6-5.0) 04/12/22 04:00 Chloride 101.5 mmol/L (98-107) 04/12/22 04:00 Carbon Dioxide 27 mmol/L (22-30) 04/12/22 04:00 Anion Gap 15 mmol/L 04/12/22 04:00 BUN 21 mg/dL (9-20) H 04/12/22 04:00 Creatinine 1.3 mg/dL (0.8-1.3) 04/12/22 04:00 Estimated GFR > 60 ml/min 04/12/22 04:00 BUN/Creatinine Ratio 16 % 04/12/22 04:00 Glucose 154 mg/dL (75-100) H 04/12/22 04:00 POC Glucose 159 mg/dL (70-105) H 04/12/22 00:05 Calcium 9.5 mg/dL (8.4-10.2) 04/12/22 04:00 Total Bilirubin 0.80 mg/dL (0.1-1.2) 04/10/22 13:29 AST 12 units/L (5-40) 04/10/22 13:29 ALT 9 units/L (7-56) 04/10/22 13:29 Alkaline Phosphatase 111 units/L (35-129) 04/10/22 13:29 Troponin T 0.061 ng/mL (0.00-0.029) H D 04/11/22 23:40 NT-Pro-B Natriuret Pep 2730 pg/mL (0-900) H 04/11/22 11:53 Total Protein 7.4 g/dL (6.3-8.2) 04/10/22 13:29 Albumin 4.1 g/dL (3.9-5) 04/10/22 13:29 Albumin/Globulin Ratio 1.2 % 04/10/22 13:29 Triglycerides 53 mg/dL (2-149) 04/10/22 13:29 Cholesterol 151 mg/dL (50-199) 04/10/22 13:29 LDL Cholesterol Direct 98 mg/dL (50-130) 04/10/22 13:29 HDL Cholesterol 42 mg/dL (40-59) 04/10/22 13:29 Cholesterol/HDL Ratio 3.59 % 04/10/22 13:29 Yee/IV: Voiding Method Urinal Active Medications - Current Medications Current Medications: Generic Name Dose Route Start Last Admin Trade Name Freq PRN Reason Stop Dose Admin Acetaminophen 650 mg 04/11/22 17:10 Acetaminophen 325 Mg Tab PO Q4H PRN Pain MILD(1-3)/Fever >100.5/WADE Albuterol 2.5 mg 04/11/22 17:10 Albuterol 2.5 Mg/3 Ml Nebu IH Q4HRT PRN Shortness Of Breath Aspirin 81 mg 04/12/22 10:00 Aspirin 81 Mg Tab Chew PO DAILY [facility] Atorvastatin Calcium 20 mg 04/11/22 22:00 04/11/22 22:12 Atorvastatin 20 Mg Tab PO 20 mg QHS HAROLDO Administration Dextrose 50 ml 04/11/22 17:13 Dextrose 50% In Water (25gm) 50 Ml Syringe IV Q30MIN PRN Hypoglycemia Protocol Furosemide 20 mg 04/11/22 18:00 04/12/22 05:17 Furosemide 20 Mg/2 Ml Inj IV 20 mg BID@0600,1800 HAROLDO Administration Hydralazine HCl 50 mg 04/12/22 10:00 Hydralazine 25 Mg Tab PO BID [facility] Insulin Human Regular 0 units 04/11/22 22:00 04/12/22 00:23 Insulin Regular, Human 100 Units/1 Ml SUB-Q Not Given ACHS [facility] Protocol Isosorbide Mononitrate 30 mg 04/12/22 10:00 Isosorbide Mononitrate Er 30 Mg Tab PO QDAY HAROLDO Lisinopril 40 mg 04/11/22 13:00 04/11/22 13:21 Lisinopril 20 Mg Tab PO 40 mg DAILY HAROLDO Administration Meclizine HCl 25 mg 04/11/22 17:12 Meclizine 25 Mg Tab PO QID PRN Vertigo Metoprolol Succinate 50 mg 04/12/22 10:00 Metoprolol Succinate Xl 50 Mg Tab PO QDAY [facility] Morphine Sulfate 2 mg 04/11/22 17:10 Morphine 4 Mg/1 Ml Inj IV Q8H PRN Pain , Severe (7-10) Ondansetron HCl 4 mg 04/11/22 17:10 Ondansetron 4 Mg/2 Ml Inj IV Q8H PRN Nausea And Vomiting Oxycodone/Acetaminophen 1 tab 04/11/22 17:10 Oxycodone /Acetaminophen 5-325mg Tab PO Q6H PRN Pain, Moderate (4-6) Sodium Chloride 10 ml 04/11/22 22:00 04/11/22 22:12 Sodium Chloride 0.9% 10 Ml Flush Syringe IV 10 ml BID HAROLDO Administration Sodium Chloride 10 ml 04/11/22 17:10 04/12/22 05:19 Sodium Chloride 0.9% 10 Ml Flush Syringe IV 10 ml PRN PRN Administration LINE FLUSH Tamsulosin HCl 0.4 mg 04/12/22 10:00 Tamsulosin 0.4 Mg Cap PO QDAY HAROLDO
[2022-04-12] MEDS ORDERED: amLODIPine 10 MG TAB PO SCH (10:00)
[2022-04-12] MEDS ORDERED: TAMSULOSIN 0.4 MG CAP PO SCH (10:00)
[2022-04-12] MEDS: METOPROLOL SUCCINATE XL 50 MG TAB PO SCH (10:11)
[2022-04-12] MEDS: LISINOPRIL 20 MG TAB PO SCH (10:12)
[2022-04-12] MEDS: ASPIRIN 81 MG TAB CHEW PO SCH (10:12)
[2022-04-12] MEDS: hydrALAZINE 25 MG TAB PO SCH ×2 (10:12→21:45)
--- NOTE | 2022-04-12 10:29 | Nuclear Medicine Report ---
APPROVED REPORT Exam: Nuclear Stress Test Indication: Chest pain [facility] Ht: 5 ft 4 in Wt: 185 lbs BSA: 1.89 m2 HR: 76 bpmBP: 132/84 mmHgBMI: 31.75 Rhythm: SINUS RHYTHM WITH SINUS ARRHYTHMIA Stress Test Details Stress Test: Pharmacologic stress testing performed using 0.4 mg of regadenoson per 5 mL given IV over 10 seconds. HR Resting HR: 76 bpm Max HR Achieved: 88 bpm Max Heart Rate (APMHR): 143.158206 bpm Target HR (85% APMHR): 121.040286 bpm % of APMHR: 61.54 Recovery HR: 84 bpm BP Resting BP: 132/84 mmHg Max BP: 150/86 mmHg Recovery BP: 146/90 mmHg ECG Resting ECG: Sinus Rhythm WITH SINUS ARRHYTHMIA Stress ECG: Sinus Rhythm NM EXAM: Myocardial Perfusion REST/STRESS Imaging Protocol: Rest Tc-99m/Stress Tc-99m 1 day Resting Data Rest SPECT myocardial perfusion imaging was performed in supine position 45 minutes following the intravenous injection of mCi of Time of rest injection: 0815 Pharmacologic Stress Time of stress injection: 09:31:02 Gated Stress SPECT was performed 30 minutes after stress injection. The images were gated to evaluate regional wall motion and calculate left ventricular ejection fraction. Study Data TID = 1.08. Perfusion Nuclear Conclusion ECG Findings: negative for ischemia Clinical Findings: negative for ischemia Nuclear Findings: negative for ischemia Exercise Capacity: not assessed Left Ventricular Function: abnormal negative lexiscan ekg, normal myocardial perfusion no sigficant ischemia, ef 23% severe lv dsfyunction suggestive of non ischemic cardiomyopathy
--- NOTE | 2022-04-12 11:00 | Progress Note ---
Assessment and Plan Patient is a 76-year-old male with a past medical history of hypertension, diabetes, hyperlipidemia who presented to the ED with a complaint of intermittent chest pain and shortness of breath x1 month NSTEMI Type II * Patient is currently chest pain-free. Troponins are mildly elevated subacute and nonspecific. Lexiscan rest/stress MPI shows no reversible ischemia. Nonischemic cardiomyopathy * Echocardiogram 04/11/2022: LVEF 20 to 25%. LV SF severely decreased, hypokinesis. Mild LVH. Moderate MR. Moderate TR. * GDMT: Continue aspirin, atorvastatin, * Continue to optimize blood pressure: metoprolol XR 50 mg daily. Lisinopril 40mg daily. Hydralazine 50mg twice daily. Imdur 30mg Daily * Optimize volume status Lasix IV, initiate Lasix 40 mg p.o. daily, initiate Aldactone 25 mg daily * Pt counselled on fluid intake and low salt diet. Patient is currently in stable cardiac status. Optimize medications in anticipation of discharge. Expect patient may discharge tomorrow from cardiology standpoint. Patient should follow-up with Dr. Bain [facility] heart specialists on at 2 PM in our [place] office. Call [phone] Patient seen in conjunction with Dr. Bain who agrees this plan of care - Patient Problems (1) Diabetes Current Visit: Yes Status: Acute (2) Elevated troponin Current Visit: Yes Status: Acute (3) HTN (hypertension) Current Visit: Yes Status: Acute (4) Obesity Current Visit: Yes Status: Acute (5) SOB (shortness of breath) Current Visit: Yes Status: Acute (6) Noncompliance Current Visit: Yes Status: Acute (7) NSTEMI Type II Current Visit: Yes Status: Acute (8) Acute Chest Pain Current Visit: Yes Status: Acute (9) Acute Systolic Heart Failure Current Visit: Yes Status: Acute Subjective Date of service: 04/12/22 Principal diagnosis: NICMP Interval history: Patient was seen in stress lab where he was resting in bed comfortably. No chest pain overnight. Telemetry sinus rhythm with no events overnight Objective Last Vital Signs Temp 97.4 F L 04/12/22 07:49 Pulse 71 04/12/22 07:49 Resp 18 04/12/22 07:49 BP 126/76 04/12/22 10:10 Pulse Ox 95 04/12/22 07:49 - Physical Examination General: Appears Well HEENT: Positive: PERRL Neck: Positive: trachea midline Cardiac: Positive: Reg Rate and Rhythm Lungs: Positive: Normal Breath Sounds Neuro: Positive: Grossly Intact Abdomen: Positive: Soft Skin: Negative: Rash, Suspicious Lesions, Ulceration Musculoskeletal: No Fluid Collection, No Pain, Normal Range of Motion Extremities: Present: upper extr. pulses. Absent: edema - Labs and Meds Cardiac Enzymes 04/10/22 Range/Units 13:29 AST 12 (5-40) units/L Lipids 04/10/22 Range/Units 13:29 Triglycerides 53 (2-149) mg/dL Cholesterol 151 (50-199) mg/dL HDL Cholesterol 42 (40-59) mg/dL Cholesterol/HDL Ratio 3.59 % Comprehensive Metabolic Panel 04/10/22 04/12/22 Range/Units 13:29 04:00 Sodium 141 139 (137-145) mmol/L Potassium 4.1 4.4 (3.6-5.0) mmol/L Chloride 105.0 101.5 (98-107) mmol/L Carbon Dioxide 24 27 (22-30) mmol/L BUN 15 21 H (9-20) mg/dL Creatinine 1.1 1.3 (0.8-1.3) mg/dL Glucose 201 H 154 H (75-100) mg/dL Calcium 9.3 9.5 (8.4-10.2) mg/dL AST 12 (5-40) units/L ALT 9 (7-56) units/L Alkaline Phosphatase 111 (35-129) units/L Total Protein 7.4 (6.3-8.2) g/dL Albumin 4.1 (3.9-5) g/dL - Imaging and Cardiology EKG: report reviewed, image reviewed Nuclear stress test: report reviewed (Lexiscan rest/stress MPI 04/12/2022: No reversible ischemia.) Echo: report reviewed (Echocardiogram 04/11/2022: LVEF 20 to 25%. LV SF severely decreased, hypokinesis. Mild LVH. Moderate MR. Moderate TR.) - Telemetry EKG Rhythm: Sinus Rhythm - EKG Sinus rhythms and dysrhythmias: sinus rhythm Repolarization changes or abnormalities: ST or T wave suggestive of ischemia
[2022-04-12] MEDS: FUROSEMIDE 40 MG TAB PO SCH (12:50)
--- NOTE | 2022-04-12 13:20 | Electrocardiograph Report ---
[facility] Test Date: 2022-04-11 Test Time: 11:32:23 Pat Name: FLORA DIAZ Department: Room: A473 1 Gender: M [employer] Consultant: GA : 1945 Requested By: YUKO JON Order Number: [id number] Reading MD: Jennie Bae Measurements Intervals [place] Rate: 96 P: 58 [place]: 166 QRS: -31 QRSD: 91 T: 162 QT: 380 QTc: 478 Interpretive Statements Sinus rhythm Atrial premature complex Probable left atrial enlargement LVH with secondary repolarization abnormality Compared to ECG 04/10/2022 12:59:16 Atrial premature complex(es) now present Electronically Signed On 04-12-2022 13:20:11 EDT by Jennie Bae
--- NOTE | 2022-04-12 13:30 | Electrocardiograph Report ---
[facility] Test Date: 2022-04-12 Test Time: 11:40:22 Pat Name: FLORA DIAZ Department: Room: A473 1 Gender: M Sales Trainer: CICI : 1945 Requested By: SRI FELIX Order Number: [id number] Reading MD: Jennie Bae Measurements Intervals [place] Rate: 82 P: 57 [place]: 166 QRS: -18 QRSD: 101 T: 191 QT: 451 QTc: 527 Interpretive Statements Sinus rhythm Left atrial enlargement T wave inversions, consider anterolateral ischemia Prolonged QT interval Compared to ECG 04/11/2022 11:32:23 Anterolateral T wave inversions are more prominent Electronically Signed On 04-12-2022 13:29:46 EDT by Jennie Bae
[2022-04-13 07:10] LABS: BUN/Creatinine Ratio 19; Blood Urea Nitrogen 25 mg/dL (9-20); Calcium 9.3 mg/dL (8.4-10.2); Hemolysis Index 5
[2022-04-13] MEDS: INSULIN REGULAR, HUMAN 100 UNITS/1 ML SUB-Q SCH (09:36)
[2022-04-13 09:37] VITALS: BP 145/90
[2022-04-13] MEDS: hydrALAZINE 25 MG TAB PO SCH (09:38)
[2022-04-13] MEDS: ASPIRIN 81 MG TAB CHEW PO SCH (09:38)
[2022-04-13] MEDS: METOPROLOL SUCCINATE XL 50 MG TAB PO SCH (09:39)
[2022-04-13] MEDS: FUROSEMIDE 40 MG TAB PO SCH (09:39)
[2022-04-13] MEDS: LISINOPRIL 20 MG TAB PO SCH (09:40)
--- NOTE | 2022-04-13 09:40 | Discharge Summary ---
Providers - Providers Date of Admission: 04/11/22 17:10 Date of discharge: 04/13/22 Attending physician: HARJIT CHAVARRIA 04/11/22 Consult to Cardiac Rehabilitation [CONS] Routine Reason For Exam: Phase 1 04/11/22 11:34 Consult to Physician [CONS] Stat Comment: Consulting Provider: PÉREZ NGUYEN Physician Instructions: Reason For Exam: Chest pain/elevated troponin Primary care physician: [employer] Hospitalization Reason for admission: CP, CHF Condition: Fair Hospital course: 76 YO Male with Obesity, HTN, BPH, DM, HLD, Metabolic Syndrome, BPV, Medication Noncompliance presents to ED for evaluation of chest pain and shortness of breath over the past month. Patient report 7 pound weight gain over the past week as well as orthopnea and PND. In the ED, patient found to have a systolic blood pressure in the 190s. The patient was admitted with diagnosis below Acute hypoxic respiratory failure Acute systolic heart failure NSTEMI type II Chest pain/elevated troponin Hypertensive urgency Hyperlipidemia Diabetes mellitus type 2 Hospital course: 04/12/2022. Echocardiogram reveals left ventricular systolic function severely decreased with hypokinesis in the anterior, anterior lateral, inferior lateral and inferior wall with EF of 20-25%. RVSP is [address] scan shows no evidence of PE but does reveal mild pulmonary edema and dependent consolidation in the right lower lobe likely representing atelectasis. Cardiology initiated metoprolol, lisinopril. Continue aspirin and statin. BNP mildly elevated at 2730. Initiate diuresis per cardiology recommendations. Patient for ischemic evaluation with stress test this a.m. Continue O2 to maintain saturations greater than 92%. Patient currently on 2 L with O2 saturation of 96% 04/13/2022. Patient's volume status was optimized with Lasix IV 40 mg and Aldactone 25 mg initiated yesterday. Patient counseled on fluid intake and low- salt diet. Patient is chest pain-free and felt to have had NSTEMI type II. Continue to optimize blood pressure: metoprolol XR 50 mg daily. Lisinopril 40mg daily. Hydralazine 50mg twice daily. Imdur 30mg Daily. Patient is currently euvolemic and felt to have received maximal hospital benefit for discharge. Cardiology feels that the patient can discharge home. Dedicated discharge time 35 minutes Disposition: HOME / SELF CARE / HOMELESS Final Discharge Diagnosis (Prints w/discharge instructions): Acute hypoxic respiratory failure. Acute systolic heart failure. NSTEMI type II. Chest pain/elevated troponin. Hypertensive urgency. Hyperlipidemia. Diabetes mellitus type 2 Core Measure Documentation - Palliative Care Palliative Care/ Comfort Measures: Not Applicable - Core Measures Any of the following diagnoses?: heart failure - Heart Failure Discharge Requirements JACEY/ARB for LVSD if EF <40%: Yes Beta jeffrey at discharge: Yes Exam - Constitutional Vitals: Temp Pulse Resp BP Pulse Ox 97.6 F 83 18 134/69 97 04/13/22 03:42 04/13/22 04:24 04/13/22 03:42 04/13/22 03:42 04/13/22 03:42 General appearance: Present: no acute distress, well-nourished - EENT Eyes: Present: PERRL ENT: hearing intact, clear oral mucosa - Neck Neck: Present: supple, normal ROM - Respiratory Respiratory effort: normal Respiratory: bilateral: CTA - Cardiovascular Heart Sounds: Present: S1 & S2. Absent: rub, click - Extremities Extremities: pulses symmetrical, No edema Peripheral Pulses: within normal limits - Abdominal General gastrointestinal: Present: soft, non-tender, non-distended, normal bowel sounds Male genitourinary: Present: normal - Integumentary Integumentary: Present: clear, warm, dry - Musculoskeletal Musculoskeletal: gait normal, strength equal bilaterally - Psychiatric Psychiatric: appropriate mood/affect, intact judgment & insight - Neurologic Neurologic: CNII-XII intact, moves all extremities Plan Activity: advance as tolerated Weight Bearing Status: Weight Bear as Tolerated Diet: low fat, low cholesterol, low salt Follow up with: PRIMARY MD TERI [Primary Care Provider] - 3-5 Days PÉREZ NGUYEN MD [Staff Physician] - 7 Days Prescriptions: Meclizine [Antivert] 25 mg PO QID PRN #20 tablet PRN Reason: Vertigo hydrALAZINE [Apresoline TAB] 50 mg PO BID #60 tablet Aspirin [Aspirin BABY CHEW TAB] 81 mg PO DAILY #30 tab.chew Tamsulosin [Flomax] 0.4 mg PO QDAY #7 cap ISOSORBIDE MONOnitrate [Imdur ER] 30 mg PO QDAY #30 tablet Furosemide [Lasix TAB] 40 mg PO QDAY #30 tablet AtorvaSTATin [Lipitor] 20 mg PO QHS #30 tablet Metoprolol Xl [Metoprolol SUCCINATE ER TAB] 50 mg PO QDAY #30 tablet oxyCODONE /ACETAMINOPHEN [Percocet 5/325 mg] 1 tab PO Q6H PRN #8 tablet PRN Reason: Pain, Moderate (4-6) lisinopriL [Zestril TAB] 40 mg PO DAILY #30 tablet
== END 2022-04-13 12:39 | disposition home or self-care (01) | DRG 280 ==
LOC: ED 12:51 → 4A 04-11 17:10
PROVIDERS: ADMIT Internal Medicine; ATTEND Hospitalist
DX: I11.0 Hypertensive heart disease with heart failure (principal); I50.21 Acute systolic (congestive) heart failure; I21.A1 Myocardial infarction type 2; J96.01 Acute respiratory failure with hypoxia; I42.8 Other cardiomyopathies; E78.00 Pure hypercholesterolemia, unspecified; E11.9 Type 2 diabetes mellitus without complications; E66.9 Obesity, unspecified; Z91.19 Patient's noncompliance with other medical treatment and regimen; E88.81 Metabolic syndrome and other insulin resistance; E78.2 Mixed hyperlipidemia; Z68.31 Body mass index [BMI] 31.0-31.9, adult; I16.0 Hypertensive urgency; N40.0 Benign prostatic hyperplasia without lower urinary tract symptoms; Z88.8 Allergy status to other drugs, medicaments and biological substances; Z82.49 Family history of ischemic heart disease and other diseases of the circulatory system; Z79.84 Long term (current) use of oral hypoglycemic drugs
CPT/HCPCS: 36415; 71046; 71275; 78452; 80048; 80053; 80061; 82962; 83880; 84484; 85025; 85379; 85610; 85730; 93005; 93017; 93306; 94760; 96374; 96375; 99285; G0378; Q9967; A9502; C8929; J1815; J1940; J2405; J2785; J3010